=== PATIENT | male | born 1960 | race African-American/Black ===

== ENCOUNTER 2025-07-03 17:13 | Emergency (ER) | payer OTHER ==
[~2025-07-03] VITALS: Ht 154.9 cm; Wt 63.6 kg
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
[2025-07-03] MEDS ORDERED: CYCL-839 PO (18:13)
[2025-07-03] MEDS ORDERED: DICL50TA2 PO (18:13)
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
[2025-07-03 21:47] VITALS: BP 115/70; PULSE 57; RESP 18; TEMP 98; O2SAT 98
== END 2025-07-03 21:53 | disposition home or self-care (01) ==
LOC: EDBD 17:13 → ER 17:13
DX: M62.838 Other muscle spasm (principal); E11.9 Type 2 diabetes mellitus without complications; I10 Essential (primary) hypertension; F17.210 Nicotine dependence, cigarettes, uncomplicated; V49.40XA Driver injured in collision with unspecified motor vehicles in traffic accident, initial encounter; Y93.89 Activity, other specified; Y92.410 Unspecified street and highway as the place of occurrence of the external cause; Y99.8 Other external cause status
CPT/HCPCS: 72125